=== PATIENT | male | born 1980 | race Caucasian/White ===

== ENCOUNTER 2017-11-15 00:39 | Emergency (ER) | payer SELFPAY ==
[~2017-11-15] VITALS: Ht 172.7 cm; Wt 86.2 kg
[2017-11-15 00:52] VITALS: Ht 172.7 cm; Wt 86.2 kg
[2017-11-15 04:23] VITALS: BP 115/72
== END 2017-11-15 04:23 | disposition home or self-care (01) ==
LOC: ED 00:39
DX: G43.909 Migraine, unspecified, not intractable, without status migrainosus (principal); H57.13 Ocular pain, bilateral; R11.0 Nausea
CPT/HCPCS: J1200; J2765; J7030